=== PATIENT | male | born 1940 | race Caucasian/White ===

== ENCOUNTER 2018-07-15 11:59 | Emergency (ER) | payer MEDICARE, OTHER ==
[~2018-07-15] VITALS: Ht 175.3 cm; Wt 83.9 kg
--- OUTSIDE RECORDS SUMMARY | ~2018-07-15 | XMS | Clinical Summary ---
Demographics + + + | Address | [address] | | | [place] [address] | + + + | Home Phone | | + + + | Preferred Language | Unknown | + + + | Marital Status | | + + + | Sabianism Affiliation | Unknown | + + + | Race | Unknown | + + + | Ethnic Group | Unknown | + + + Author + + + | Author | [facility] | | | and [place] | + + + | Organization | [facility] | | | and [place] | + + + | Address | Unknown | + + + | Phone | Unavailable | + + + Support + + +---------+ + | Name | Relationship | Address | Phone | + + +---------+ + | Nancy Hewitt | ECON | Unknown | | + + +---------+ + Care Team Providers + +------+ + | Care Manager Commercial Real Estate Name | Role | Phone | + +------+ + | Graham Bernabe DO | PP | | + +------+ + Allergies Not on File Current Medications Not on file Active Problems Not on file Social History + +-------+ +--------+------+ | Tobacco Use | Types | Packs/Day | Years | Date | | | | | Used | | + +-------+ +--------+------+ | Never Assessed | | | | | + +-------+ +--------+------+ + + + | Sex Assigned at | Date Recorded | | | | + + + | Not on file | | + + + Plan of Treatment + + + + + | Health Maintenance | Due Date | Last Done | Comments | + + + + + | Vaccine: | | | | | Dtap/Tdap/Td (1 - | 0 | | | | Tdap) | | | | + + + + + | Vaccine: Zoster (1 | | | | | of 2) | 1 | | | + + + + + | Vaccine: | | | | | Pneumococcal 65+ | 6 | | | | Low/Medium Risk (1 | | | | | of 2 - PCV13) | | | | + + + + + | Adult Annual | | | | | Wellness Visit | 8 | | | + + + + + | Vaccine: Influenza | | | | | (Season Ended) | 9 | | | + + + + + Results Not on filefrom Last 3 Months Insurance + +--------+ +--------+ +---------+ | Payer | Benefi | Subscriber | Type | Phone | Address | | | t Plan | ID | | | | | | / | | | | | | | Group | | | | | + +--------+ +--------+ +---------+ | MEDICARE | MEDICA | [id number] | Medica | [phone] | | | | RE | | re | [phone] | | | | PART A | | | | | | | AND B | | | | | + +--------+ +--------+ +---------+ | | TRICAR | [id number] | Indemn | [phone] | | | | E FOR | | ity | [phone] | | | | LIFE | | | | | + +--------+ +--------+ +---------+ + +--------+ +--------+ + + | Guarantor Name | Accoun | Relation to | Date | Phone | Billing Address | | | t Type | Patient | of | | | | | | | | | | + +--------+ +--------+ + + | GHASSAN HEWITT | Person | Self [birth year] Home: | [address] | | | [place] | | 1940 | [phone] | [place] [address] | | | [place] | | | [phone] | | + +--------+ +--------+ + +"
--- OUTSIDE RECORDS SUMMARY | ~2018-07-15 | XMS | Encounter Summary ---
Demographics + + + | Address | [address] | | | [place] [address] | + + + | Home Phone | | + + + | Preferred Language | Unknown | + + + | Marital Status | | + + + | Baptist Affiliation | Unknown | + + + | Race | Unknown | + + + | Ethnic Group | Unknown | + + + Author + + + | Author | [facility] | + + + | Organization | [facility] | + + + | Address | Unknown | + + + | Phone | Unavailable | + + + Support + + +---------+ + | Name | Relationship | Address | Phone | + + +---------+ + | Nancy Hewitt | ECON | Unknown | | + + +---------+ + Care Team Providers + +------+ + | Care Signal Operator Technical Name | Role | Phone | + +------+ + | Srinivasa Graham | PCP | | + +------+ + Encounter Details +--------+ + + + + | Date | Type | Department | Care Team | Description | +--------+ + + + + | 06/01/ | Telephone | [facility] | Tong, | | | 2018 | | Rheumatology [address] | Leticia Pimentel [facility] [address] | | | | | [place] | [facility] | | | | | [place] [address] | [place] [address] | | | | | [phone] | [phone] | | | | | | | | +--------+ + + + + Social History + +-------+ +--------+------+ | Tobacco Use | Types | Packs/Day | Years | Date | | | | | Used | | + +-------+ +--------+------+ | Current Every Day | | | | | | Smoker | | | | | + +-------+ +--------+------+ + +---+---+---+ | Smokeless Tobacco: | | | | | Never Used | | | | + +---+---+---+ + + +---------+ + | Alcohol Use | Drinks/We | oz/Week | Comments | | | ek | | | + + +---------+ + | Yes | 8 Cans | 4.8 | | | | of beer | | | + + +---------+ + + + + | Sex Assigned at | Date Recorded | | | | + + + | Not on file | | + + + as of this encounter Plan of Treatment Not on fileas of this encounter Visit Diagnoses Not on filein this encounter"
--- OUTSIDE RECORDS SUMMARY | ~2018-07-15 | XMS | Encounter Summary ---
Demographics + + + | Address | [address] | | | [place] [address] | + + + | Home Phone | | + + + | Preferred Language | Unknown | + + + | Marital Status | | + + + | Christianity Affiliation | Unknown | + + + | Race | Unknown | + + + | Ethnic Group | Unknown | + + + Author + + + | Author | [facility] | + + + | Organization | [facility] | + + + | Address | Unknown | + + + | Phone | Unavailable | + + + Support + + +---------+ + | Name | Relationship | Address | Phone | + + +---------+ + | Nancy Hewitt | ECON | Unknown | | + + +---------+ + Care Team Providers + +------+ + | Care Statistical Assistant Name | Role | Phone | + +------+ + | Graham Bernabe | PCP | | + +------+ + Encounter Details +--------+ + + + + | Date | Type | Department | Care Team | Description | +--------+ + + + + | 06/02/ | Telephone | [facility] | Claritza Villegas, | | | 2018 | | Rheumatology [address] | [address] | | | | | [address] | | | | | | [place] [address] | | | | | | [phone] | | | +--------+ + + + [...]
--- OUTSIDE RECORDS SUMMARY | ~2018-07-15 | XMS | Encounter Summary ---
Demographics + + + | Address | [address] | | | [place] [address] | + + + | Home Phone | | + + + | Preferred Language | Unknown | + + + | Marital Status | | + + + | Yazdanism Affiliation | Unknown | + + + | Race | Unknown | + + + | Ethnic Group | Unknown | + + + Author + + + | Author | [facility] | + + + | Organization | [facility] | + + + | Address | Unknown | + + + | Phone | Unavailable | + + + Support + + +---------+ + | Name | Relationship | Address | Phone | + + +---------+ + | Nancy Hewitt | ECON | Unknown | | + + +---------+ + Care Team Providers + +------+ + | Care Finished Cloth Checker Name | Role | Phone | + +------+ + | Srinivasa Graham | PCP | | + +------+ + Encounter Details +--------+ + + + + | Date | Type | Department | Care Team | Description | +--------+ + + + + | 06/01/ | Telephone | [facility] | Tong, | | | 2018 | | Rheumatology [address] | Leticia Pimentel [facility] [address] | | | | | [place] | [facility] | | | | | [place] [address] | [place] [address] | | | | | [phone] | [phone] | | | | | | | [...]
--- OUTSIDE RECORDS SUMMARY | ~2018-07-15 | XMS | Clinical Summary ---
Demographics + + + | Address | [address] | | | [place] [address] | + + + | Home Phone | | + + + | Preferred Language | Unknown | + + + | Marital Status | | + + + | Methodist Affiliation | Unknown | + + + | Race | Unknown | + + + | Ethnic Group | Unknown | + + + Author + + + | Author | [facility] | | | and [place] | + + + | Organization | [facility] | | | [...] Team Providers + +------+ + | Care Overcoiler Name | Role | Phone | + [...] +--------+ +---------+ | MEDICARE | MEDICA | [id number] | Medica | [phone] | | | | RE | | re | [phone] | | | | PART A | | | | | | | AND B | | | | | + +--------+ +--------+ +---------+ | | TRICAR | [id number] | Indemn | [phone] | | | [...] | Self [birth year] | Home: | [address] | | | [place] | | 1940 | [phone] | [place] [address] | | | [place] | | | [phone] | | + +--------+ +--------+ + +"
--- OUTSIDE RECORDS SUMMARY | ~2018-07-15 | XMS | Clinical Summary ---
Demographics + + + | Address | [address] | | | [place] [address] | + + + | Home Phone | | + + + | Preferred Language | Unknown | + + + | Marital Status | | + + + | Nondenominational Affiliation | Unknown | + + + | Race | Unknown | + + + | Ethnic Group | Unknown | + + + Author + + + | Author | [facility] | + + + | Organization | [facility] | + + + | Address | Unknown | + + + | Phone | Unavailable | + + + Support + + +---------+ + | Name | Relationship | Address | Phone | + + +---------+ + | aNncy Hewitt | ECON | Unknown | | + + +---------+ + Care Team Providers + +------+ + | Care Boat Person Name | Role | Phone | + +------+ + | Graham Bernabe DO | PP | | + +------+ + Allergies No Known Allergies Current Medications + + + +---------+------+------+-------+ | Prescription | Sig. | Disp. | Refills | Star | End | Statu | | | | | | t | Date | s | | | | | | Date | | | + + + +---------+------+------+-------+ | aspirin 81 MG | Take 81 mg by mouth | | | | | Activ | | tablet | daily. | | | | | e | + + + +---------+------+------+-------+ | multivitamin | Take 1 tablet by | | | | | Activ | | (AQUADEKS) chewable | mouth daily with | | | | | e | | tablet | breakfast. | | | | | | + + + +---------+------+------+-------+ | Misc Natural | Take by mouth. | | | | | Activ | | Products | | | | | | e | | ([id number] | | | | | | | | M COMPLEX PO) | | | | | | | + + + +---------+------+------+-------+ | diclofenac | Apply 2 g topically | 1 Tube | 2 | 06/ | | Activ | | (VOLTAREN) 1 | 4 (four) times | | | 120 | | e | | %Indications: | daily. | | | 18 | | | | Rheumatoid arthritis | | | | | | | | of multiple sites | | | | | | | | with negative | | | | | | | | rheumatoid factor | | | | | | | | (HCC) | | | | | | | + + + +---------+------+------+-------+ | ORENCIA 125 MG/ML | INJECT 125 MG (1 ML) | 12 mL | 0 | 09/2 | | Activ | | SC prefilled | UNDER THE SKIN | | | 6/20 | | e | | syringeIndications: | EVERY 7 DAYS | | | 18 | | | | Rheumatoid arthritis | | | | | | | | of multiple sites | | | | | | | | with negative | | | | | | | | rheumatoid factor | | | | | | | | (HCC) | | | | | | | + + + +---------+------+------+-------+ | leflunomide | Take one tablet | 45 | 0 | 10/1 | | Activ | | (ARAVA) 20 MG | every other day | tablet | | 2/20 | | e | | tabletIndications: | | | | 18 | | | | Rheumatoid | | | | | | | | arthritis, involving | | | | | | | | unspecified site, | | | | | | | | unspecified | | | | | | | | rheumatoid factor | | | | | | | | presence (HCC) | | | | | | | + + + +---------+------+------+-------+ Active Problems + + + | Problem | Noted Date | + + + | 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 | | Inflammatory markers are increased, but this is a normal trend | | for him.Hand symptoms are most likely due to | | degenerative/mechanical changes, not inflammatoryRecommend:1. | | Continue arava 20 mg QOD. Recall, dose decreased due to decrease | | in WBC's. Keep a close watch on WBC's.2. Continue Orencia 125 | | mg/ml Q 4 weeks3. Continue voltaren gel PRN4. Return to clinic | | 3-4 months. | + + + + + | High risk medication use | 01/08/2017 | + + + + + | Last Assessment & Plan: Update labs today and continue to | | monitor closely while on DMARD and/or biologic medication. | | Counseled regarding medication compliance as well as potential | | toxicities with medications such as cytopenias, liver | | abnormalities and risks for infection, and the need for routine | | blood work monitoring. | + + + + + | Primary osteoarthritis involving multiple joints | 01/08/2017 | + + + + + | Last Assessment & Plan: Stable, continue conservative | | measuresContinue low impact exercise such as swimming and | | Voltaren gel prn | + + Resolved Problems +---------+ + + | Problem | Noted | Resolved | | | Date | Date | +---------+ + + | Rash | 01/09/20 | | | | 17 | 8 | +---------+ + + + + | Last Assessment & Plan: No rash present on today's | | examinationUncertain etiology of rash, as this gentleman was | | swimming and did have some sun exposure.If rash does reoccur, | | recommend she photograph, and contact our office or PCP for | | further evaluation. | + + Encounters +--------+ + + + + | Date | Type | Specialty | Care Team | Description | +--------+ + + + + | 06/02/ | Telephone | | Claritza Villegas, | | | 2018 | | | AUDIT SPEC | | +--------+ + + + + | 06/01/ | Telephone | | Tong, | | | 2018 | | | CHARLIE Corea | | +--------+ + + + + from Last 3 Months Family History + + +------+ + | Medical History | Relation | Name | Comments | + + +------+ + | Heart disease | Mother | | | + + +------+ + + +------+ + + | Relation | Name | Status | Comments | + +------+ + + | Father | | | | + +------+ + + | Mother | | | | + +------+ + + Social History + +-------+ +--------+------+ [...] on file | | + + + Last Filed Vital Signs + + + + | Vital Sign | Reading | Time Taken | + + + + | Blood Pressure | 143/81 | 01/23/2018 10:28 AM PDT | + + + + | Pulse | 101 | 01/23/2018 10:28 AM PDT | + + + + | Temperature | 37 C (98.6 F) | 01/23/2018 10:28 AM PDT | + + + + | Respiratory Rate | - | - | + + + + | Oxygen Saturation | - | - | + + + + | Inhaled Oxygen | - | - | | Concentration | | | + + + + | Weight | 92.5 kg (204 lb) | 01/23/2018 10:28 AM PDT | + + + + | Height | 175.3 cm (5' 9") | 01/23/2018 10:28 AM PDT | + + + + | Body Mass Index | 30.13 | 01/23/2018 10:28 AM PDT | + + + + Plan of Treatment + [...] Vaccine: Influenza | | | | | (#1) | 8 | | | + + + + + Results Not on filefrom Last 3 Months Insurance + +--------+ +------+-------+ + | Payer | Benefi | Subscriber | Type | Phone | Address | | | t Plan | ID | | | | | | / | | | | | | | Group | | | | | + +--------+ +------+-------+ + | MEDICARE | MEDICA | [id number] | | | [address] | | | RE | | | | [place] [id number] | | | IP-OP | | | | | + +--------+ +------+-------+ + | - WPS - | TRICAR | [id number] | | | [address] [address] | | | [place] | | | | [place] | | | LIFE | | | | [phone] | + +--------+ +------+-------+ + + +--------+ +--------+ + + | Guarantor Name | Accoun | Relation to | Date | Phone | Billing Address | | | t Type | Patient | of | | | | | | | | | | + +--------+ +--------+ + + | GHASSAN HEWITT | Person | Self [birth year] | Home: | [address] | | | [place] | | 1940 | [phone] | [place] [address] | | | [place] | | | [phone] | | + +--------+ +--------+ + +
--- OUTSIDE RECORDS SUMMARY | ~2018-07-15 | XMS | Clinical Summary ---
Demographics + + + | Address | [address] | | | [place] [address] | + + + | Home Phone | | + + + | Preferred Language | Unknown | + + + | Marital Status | | + + + | Episcopal Affiliation | Unknown | + + + | Race | Unknown | + + + | Ethnic Group | Unknown | + + + Author + + + | Author | [facility] | + + + | Organization | [facility] | + + + | Address | Unknown | + + + | Phone | Unavailable | + + + Support + + +---------+ + | Name | Relationship | Address | Phone | + + +---------+ + | Nancy Hewitt | ECON | Unknown | | + + +---------+ + Care Team Providers + +------+ + | Care Liquor Gallery Operator Name | Role | Phone | + [...] | | | | e | | ([id number] | | | | | | | [...] | | | 2018 | | | HANDLE MAKER | | +--------+ + + + + [...] +------+-------+ + | MEDICARE | MEDICA | [id number] | | | [address] | | | RE | | | | [place] [phone] | | | IP-OP | | | | | + +--------+ +------+-------+ + | - WPS - | TRICAR | [id number] | | | [address] [address] | | | [place] FOR | | | | [place] | | | LIFE | | | | [phone] | + +--------+ +------+-------+ + + +--------+ +--------+ + + | Guarantor Name | Accoun | Relation to | Date | Phone | Billing Address | | | t Type | Patient | of | | | | | | | | | | + +--------+ +--------+ + + | GHASSAN HEWITT | Person | Self [birth year] | Home: | [address] | | | [place] | | 1940 | [phone] | [place] [address] | | | [place] | | | [phone] | | + +--------+ +--------+ + +
--- OUTSIDE RECORDS SUMMARY | ~2018-07-15 | XMS | Encounter Summary ---
Demographics + + + | Address | [address] | | | [place] [address] | + + + | Home Phone | | + + + | Preferred Language | Unknown | + + + | Marital Status | | + + + | Episcopal Affiliation | Unknown | + + + | Race | Unknown | + + + | Ethnic Group | Unknown | + + + Author + + + | Author | [facility] | + + + | Organization | [facility] | + + + | Address | Unknown | + + + | Phone | Unavailable | + + + Support + + +---------+ + | Name | Relationship | Address | Phone | + + +---------+ + | Nancy Hewitt | ECON | Unknown | | + + +---------+ + Care Team Providers + +------+ + | Care Color Making Supervisor Name | Role | Phone | + +------+ + | Graham Bernabe | PCP | | + +------+ + Encounter Details +--------+ + + + + | Date | Type | Department | Care Team | Description | +--------+ + + + + | 06/02/ | Telephone | [facility] | Claritza Villegas, | | | 2018 | | Rheumatology [address] | [address] | | | | | [address] | | | | | | [place] [address] | | | | | | [phone] | | | +--------+ + + + [...]
[~2018-07-15 11:59] MED LIST: ARAVA20 MG PO; ASPIRIN EC81 MG PO; ATIVAN1 MG PO; AUGMENTIN 875-1 EACH PO; CIPRO500 MG PO; FIBER500 MG PO; GLUCOSAMINE-CH1 EA38; HYDROXYZINE HCL25 MG PO; IBUPROFEN800 MG PO; KETOCONAZOLE15 GM TOP; METOPROLOL SUCC25 MG PO; OMEPRAZOLE20 MG PO; ONDANSETRON ODT8 MG PO; ORENCIA125 MG/1 M SUB-Q; TOTALDAY MULTI1 EACH PO; TRIAMCINOLONE A15 GM TOP; VENCLEXTA100 MG PO; VIDAZA100 MG SUB-Q; VOLTAREN100 GM TOP; ZOVIRAX400 MG PO
--- OUTSIDE RECORDS SUMMARY | 2018-07-15 12:26 | XMS ---
PreManage Notification: DARY IQBAL Security Contamination Consultant Events No recent Security Events currently on file CRITERIA MET - [facility] CARE PROVIDERS TYLOR AGUILAR Primary Care Current PHONE: Unknown LEGACY PATIENT Primary Care [employer] SERVICES PHONE: Unknown Gayle has no Care Guidelines for this patient. Tao VISIT COUNT (12 MO.) [address] [place] [address] [facility] TOTAL 6 NOTE: Visits indicate total known visits. ED/UCC VISIT TRACKING (12 MO.) 07/15/2018 12:00 [facility] [place] TYPE: Emergency COMPLAINT: - RAPID HEART RATE 05/26/2018 11:31 [facility] TYPE: Emergency DIAGNOSES: - Acute myeloblastic leukemia, not having achieved remission - Pleurisy - chest pain 05/13/2018 14:19 [facility] [place] TYPE: Emergency DIAGNOSES: - chest pain - Other forms of angina pectoris - Acute myeloblastic leukemia, not having achieved remission - Anemia, unspecified 04/14/2018 12:20 [facility] [place] TYPE: Emergency DIAGNOSES: - SOB - Other forms of dyspnea - Anemia, unspecified 03/14/2018 13:09 [facility] [place] TYPE: Emergency DIAGNOSES: - Other forms of acute ischemic heart disease - Anemia, unspecified - Other pancytopenia - SHORTNESS OF BREATH 12/12/2017 19:26 [facility] [place] TYPE: Emergency COMPLAINT: - FB IN THROAT DIAGNOSES: - Personal history of nicotine dependence - Unspecified foreign body in esophagus causing other injury, initial encounter INPATIENT VISIT TRACKING (12 MO.) No inpatient visits to display in this time frame [email or web address]
--- NOTE | 2018-07-15 15:35 | EKG ---
[facility] [address] [facility] [place], [place] [address] S[address] Sin[address] Nonspecific ST abnormality Abnormal ECG No previous ECGs available Confirmed by HAZEL FREED DO ([id number]) on 07/15/2018 3:35:35 PM Electronically Signed By: HAZEL FREED DO 07/15/18 1535 PATIENT NAME: DARY IQBAL ELFEGO Electrocardiogram DATE OF : 42 PHYSICIAN: HAZEL FREED DO REPORT #: [id number] REPORT IS CONFIDENTIAL AND NOT TO BE RELEASED WITHOUT AUTHORIZATION
== END 2018-07-15 13:13 | disposition home or self-care (01) ==
LOC: ED 11:59
DX: R00.0 Tachycardia, unspecified (principal); Z87.891 Personal history of nicotine dependence; Z79.899 Other long term (current) drug therapy
CPT/HCPCS: 80053; 84443; 93005; 93010; 99285-25

== ENCOUNTER 2018-07-29 11:48 | Day surgery (SDC) | payer MEDICARE, OTHER ==
--- NOTE | 2018-07-15 11:22 | NUR ---
message left at cancer clinic for dr laboy pt hr 138 by auscultation was reading 144 on monitor.
--- NOTE | 2018-07-15 12:10 | NUR ---
dr laboy advises pt to go to e d to be evaluated for hr 140s. this told to pt and . states dr haines is not in office today. pt not symptomatic. they are not sure they want to go to e d. [facility].
[~2018-07-29] VITALS: Ht 175.3 cm; Wt 83.9 kg
--- NOTE | 2018-07-29 13:00 | NUR ---
07/29/18 Carmen Pena 1253 PT TO PACU AWAKE AND ALERT DENIES PAIN OR NAUSEA.
== END 2018-07-29 13:30 | disposition home or self-care (01) ==
LOC: OPS 11:48 → DS 11:48 → OPS 12:00
PROVIDERS: Specialist
PROC: 079T3ZX Drainage of Bone Marrow, Percutaneous Approach, Diagnostic (ICD-10-PCS; 2018-07-29)
PROC: 07DR3ZX Extraction of Iliac Bone Marrow, Percutaneous Approach, Diagnostic (ICD-10-PCS; principal; 2018-07-29 13:00)
DX: C92.00 Acute myeloblastic leukemia, not having achieved remission (principal); D70.9 Neutropenia, unspecified; F17.200 Nicotine dependence, unspecified, uncomplicated; Z79.899 Other long term (current) drug therapy
CPT/HCPCS: 85025; 99152; 99153; J2250; J3010; J7120

== ENCOUNTER 2018-12-18 10:18 | Day surgery (SDC) | payer MEDICARE, OTHER ==
[~2018-12-18] VITALS: Ht 175.3 cm; Wt 82.1 kg
[~2018-12-18 10:18] MED LIST changes: -METOPROLOL SUCC25 MG PO; +METOPROLOL SUCC50 MG; +TYLENOL325 MG PO
--- NOTE | 2018-12-18 12:32 | NUR ---
12/18/18 1232 Madelin Subramanian 1226- PT ARRIVES TO PACU ALERT AND ORIENTED. PT REPORTS NO PAIN OR NAUSEA. RESP EVEN AND UNLABORED. OXYGEN SAT HIGH 90'S ON 3L VIA NC. 1228- OXYGEN TITRATED OFF.
--- NOTE | 2018-12-24 13:31 | PATH ---
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 REASON FOR AMENDMENT: This amended report is issued to correct the referring provider delivery location. Originally reported as [facility]; amended to [facility]. The Diagnosis Summary remains unchanged. (12/22/2018) DIAGNOSIS SUMMARY: A. Peripheral blood - Mild normochromic, normocytic anemia. - Moderate neutropenia. B. Bone marrow, aspirate, clot section, and core biopsy: - Normocellular marrow (20-30%) with erythroid predominant trilineage hematopoiesis and dysmegakaryopoiesis. - No increase in blasts. - See Diagnostic Comment. DIAGNOSTIC COMMENT: We note the prior history of a high-grade myeloid neoplasm ([id number]) and a subsequent bone marrow biopsy demonstrating recurrent/residual myeloid neoplasm ([id number]). The current bone marrow is normocellular for age (20-30%) and demonstrates erythroid predominant trilineage hematopoiesis with occasional dyspoietic megakaryocytes seen. Flow cytometry demonstrates a 6% monocyte population, which shows decreased expression of CD13, which has been previously noted in this patient's atypical monocytes. Blasts are not increased, and a reticulin stain shows no significant fibrosis (MF-0 of 3). Karyotype and MDS FISH studies are pending and results will be reported in an addendum. [facility]:glc:C2NR PATIENT NAME: DARY HEWITT PATHOLOGY DATE OF : 42 REPORT #: [id number] PHYSICIAN: RAY PATHOLOGY PCP: TYLOR AGUILAR DO REPORT IS CONFIDENTIAL AND NOT TO BE RELEASED WITHOUT AUTHORIZATION [facility] [address], [place] [address] Signed PERIPHERAL BLOOD: HEMOGRAM (collected 12/18/2018): WBC 2.0 K/uL, RBC 4.43 M/uL, HGB 13.1 g/dL, HCT 39.2%, MCV 88.4 fL, MCH 30 pg, MCHC 33 g/dL, RDW 20.3%, PLT 194 K/uL. MANUAL DIFFERENTIAL COUNT (100 cells): Segmented neutrophils 54%, lymphocytes 38%, monocytes 5%, eosinophils 2%, basophils 1%. The red cells are mildly decreased in number and are normochromic and normocytic. There is moderate anisopoikilocytosis with occasional ovalocytes and rare hypochromic microcytes seen. Polychromasia is not increased. Leukocytes are decreased in number and show normal morphology. No significant dysplasia is appreciated in the neutrophils. Circulating blasts are not appreciated. Lymphocytes do not demonstrate atypia and include a subset of large granular lymphocytes. Platelets are normal in number and show normal morphology. BONE MARROW: BONE MARROW ASPIRATE: The bone marrow aspirate smears demonstrate a rare small spicule but are largely hemodilute and aspiculate. The bone marrow spiculate is composed predominantly of lymphocytes, histiocytes and erythroid precursors. Blasts do not appear increased. In the areas away from the spicules, there is trilineage hematopoiesis with marked erythroid predominance. Erythyroids show full spectrum maturation. Fewer scattered maturing myeloids are seen, which show normal lobation and granularity. Rare scattered megakaryocytes are present. Blasts do not appear increased. Due to significant hemodilution, a formal 200 cell was not performed. BONE MARROW CORE BIOPSY AND ASPIRATE CLOT SECTION CELL BLOCK: The bone marrow core biopsy measures 1.9 cm in length and consists of trabecular bone and intervening marrow, which shows an average cellularity of 20-30%. Erythroids are relatively increased in number and show full spectrum maturation. Myeloids are decreased in number and show full spectrum maturation. The M:E ratio is less than 1:5. Megakaryocytes are mildly increased in number and include occasional hyperchromatic and hypersegmented forms, with some loose clustering seen. A few smaller hypolobated megakaryocytes are present as well. Blasts are not increased. The bone marrow clot section shows predominantly blood with only a small fragment of marrow seen, showing similar findings as the core biopsy. SPECIAL STAINS: - Iron stain (aspirate smear): No bone marrow spicules are seen for assessment of iron stores. Ring sideroblasts are not seen. - Iron stain (block B1, with adequate external positive control): Adequate PATIENT NAME: DARY HEWITT PATHOLOGY DATE OF : 42 REPORT #: [id number] PHYSICIAN: RAY MARTINEZ PCP: TYLOR AGUILAR DO REPORT IS CONFIDENTIAL AND NOT TO BE RELEASED WITHOUT AUTHORIZATION [address] [address] Signed iron stores, no ring sideroblasts. - Reticulin (block B1, with adequate external positive control): No significant reticulin fibrosis, MF 0 of 3. IMMUNOHISTOCHEMICAL STAINS (block A1): - CD34: No increase in CD34 positive blasts. - CD117: Highlights scattered mast cells and dimly stains proerythroblasts. - E-Cadherin: Highlights numerous early erythroid precursors. [facility]:glc FLOW CYTOMETRY: Bone marrow, flow cytometry - No increase in blasts. - No monotypic B-cell or aberrant T-cell population identified. - See Comment. COMMENT: We note the prior immunophenotype of this patient's abnormal blasts (CD34 negative, CD117 dim partial) and atypical monocyte population. Flow cytometry of this current bone marrow specimen demonstrates no increase in CD34 or CD117 positive blasts. Monocytes account for 6% of all events, and demonstrate some decreased expression of CD13, which was seen in the previous studies, but otherwise show expected reactivity with panel antibodies. CD56 is essentially negative on monocytes. No abnormal B-cell or T-cell population is identified. Full interpretation of these results requires correlation with morphologic and clinical findings. FLOW CYTOMETRY ANALYSIS: FLOW DIFFERENTIAL (% Total CD45 vs. SSC gating): Myeloid 58%; Lymphoid 22%; Monocyte 6%; Dim CD45/Blast: 1%. Cell Count: 7.2 x 10*3/uL. POPULATION ANALYSIS: BLASTS: Analysis of the dim CD45 gate demonstrates 1% myeloblasts by CD34/CD117. LYMPHOID CELLS: The lymphocyte gate comprises 22% of total events and includes 89% T-cells with a CD4:CD8 ratio of 3.4:1 and normal javier T-cell antigen expression. 1% of lymphocytes are polyclonal B-cells with a kappa:lambda ratio of 2:1. The remainders are NK-cells. MYELOID CELLS: The myeloid population comprises 58% of the total events. No aberrant or immature immunophenotypic expression is detected. MONOCYTES: The monocyte population comprises 6% of the total events. Some decreased expression with CD13 is observed. PLASMA CELLS: 0.7% plasma cells are detected in the screening gate PATIENT NAME: DARY HEWITT PATHOLOGY DATE OF : 42 REPORT #: [id number] PHYSICIAN: RAY PATHOLOGY PCP: TYLOR AGUILAR DO REPORT IS CONFIDENTIAL AND NOT TO BE RELEASED WITHOUT AUTHORIZATION [facility] [address], [place] [address] Signed neg-dimCD45/CD38. Plasma cells are CD45 dim and positive for CD19. ANTIBODIES USED: KAPPA, LAMBDA, CD20, CD10, CD19, CD23, CD38, FMC7, CD16, CD56, CD8, CD5, CD2, CD4, CD7, CD3, CD14, CD33, CD13, HLADR, CD34, CD117, CD15, CD45, my4, mo2, CD11c, CD11b, CD64: TOTAL ANTIBODIES USED: 29. FINAL DIAGNOSIS PERFORMED BY: Prachi Isaac MD, Dec 22 2018 9:37AM TCS CYTOGENETICS: Pending, to be reported by addendum. FISH ANALYSIS: Pending, to be reported by addendum. GROSS DESCRIPTION: The specimen is received in two parts. A. The specimen, labeled and designated as "Marcelina, core," is received in formalin and consists of a single red-brown core of bone, 2.4 x 0.2 x 0.2 cm, which is entirely submitted in block (A1) for decalcification in Immunocal for 1.5 hours. B. The specimen, labeled and designated as "angel Hewitt," is received in formalin and consists of a 1.8 x 1.8 x 0.4 cm aggregate of red-brown clot material that is entirely submitted in block (B1). ak:YONY:francoise ADDITIONAL NOTES: Immunohistochemical and/or in situ hybridization studies were performed on this case with the appropriate positive controls that react as expected. This test was developed and its performance characteristics determined by [facility]. It has not been cleared or approved by the U.S. Food and Drug Administration. The FDA has determined that such clearance or approval is not necessary. This test is used for clinical purposes. It should not be regarded as investigational or for research. [facility] is certified under the Clinical Laboratory Improvement Amendments of 1988 (CLIA) as qualified to perform high complexity clinical laboratory testing. In this case, certain antibodies were performed by both immunohistochemistry and flow cytometry analysis because flow cytometry analysis did not fully explain all the light microscopic findings. PATIENT NAME: DARY HEWITT PATHOLOGY DATE OF : 42 REPORT #: [id number] PHYSICIAN: RAY MARTINEZ PCP: TYLOR AGUILAR DO REPORT IS CONFIDENTIAL AND NOT TO BE RELEASED WITHOUT AUTHORIZATION [address] [address] Signed Immunohistochemistry aided in the analysis. Both methods are deemed medically necessary in this case. This test was developed and its performance characteristics determined by [facility]. It has not been cleared or approved by the US Food and Drug Administration. The FDA does not require this test to go through premarket FDA review. This test is used for clinical purposes. It should not be regarded as investigational or for research. This laboratory is certified under the Clinical Laboratory Improvement Amendments (CLIA) as qualified to perform high complexity clinical laboratory testing. PERFORMING LABORATORY: Professional interpretation was performed by [facility], [address] [place] [address] (Willow Machine Operator: Conrad López D.O.; CLIA#: [id number]). The professional interpretation was performed by [facility], [address] [place] [address] (Willow Machine Operator: Conrad López D.O.; CLIA#: [id number]). IMAGES: A: [id number] A: [id number] REASON FOR ADDENDUM: To add results of additional testing. Bone marrow aspirate, FISH (fluorescence in situ hybridization) Result: Normal* (MDS panel) Interpretation: - These findings reveal no evidence of an aberrant cell clone with gains or losses of chromosomes 5q, 7q, 8, 17p and 20q at the sensitivity level of this analysis. - In order to rule out the presence of Loss of Heterozygosity regions (NAHUM/UPD), SNP microarray analysis may be considered (please contact [employer] for add-on testing). - Clinical and hematopathology correlation is requested. Interphase FISH (fluorescence in situ hybridization) was performed to assess this specimen for the presence of cytogenetic aberrations in the non-dividing cell population. Hybridization was performed using the EGR1/5p15.31 (chromosome 5), 7q22/7q31 (chromosome 7), D8Z2 (chromosome 8), TP53/D17Z1 (17p), and [id number] (20q) probe sets to assess this sample for the presence of monosomy 5 and 7, PATIENT NAME: DARY HEWITT PATHOLOGY DATE OF : 42 REPORT #: [id number] PHYSICIAN: RAY MARTINEZ PCP: TYLOR AGUILAR DO REPORT IS CONFIDENTIAL AND NOT TO BE RELEASED WITHOUT AUTHORIZATION [facility] [address] [place] [address] Signed deletion of 5q, 7q, 17p or 20q and trisomy 8, all common cytogenetic aberrations in patients with myeloid diseases. A total of 200 interphase cells were analyzed for each probe; the analyses fell within normal limits for this specimen type. -klb 12/23/18 @ 1346 *Please note, 1-3% of cells analyzed demonstrated a tetraploid FISH signal (4R4G) for all the probe sets analyzed. This may indicate the presence of a low-level tetraploid cell clone with unknown clinical significance. FISH Analysis Summary: Number of Cells Analyzed: 200 Cells Analyzed: Interphase Probes Utilized: EGR1,5p15.31, F4N124,F7B1410, C33Q610+D8Z2, TP53-P Source and Lot Number: [id number], [id number], [id number], [id number], [id number] Control Probe Utilized: database The technical and professional components of the FISH report were performed at [facility]. ([place], [place], case #[id number]). Detailed report is kept on file. Diagnostician: Prachi Isaac MD Pathologist Electronically Signed 12/23/2018 Copies: ~ PATIENT NAME: DARY HEWITT PATHOLOGY DATE OF : 42 REPORT #: [id number] PHYSICIAN: RAY MARTINEZ PCP: TYLOR AGUILAR DO REPORT IS CONFIDENTIAL AND NOT TO BE RELEASED WITHOUT AUTHORIZATION
== END 2018-12-18 13:00 | disposition home or self-care (01) ==
LOC: DS 10:18 → OPS 10:18 → DS 12:00 → OPS 12:00
PROVIDERS: Specialist
PROC: 079T3ZX Drainage of Bone Marrow, Percutaneous Approach, Diagnostic (ICD-10-PCS; 2018-12-18)
PROC: 07DR3ZX Extraction of Iliac Bone Marrow, Percutaneous Approach, Diagnostic (ICD-10-PCS; principal; 2018-12-18 12:00)
DX: C92.00 Acute myeloblastic leukemia, not having achieved remission (principal); D70.9 Neutropenia, unspecified; M06.9 Rheumatoid arthritis, unspecified; Z79.899 Other long term (current) drug therapy
CPT/HCPCS: 80053; 83615; 85025; 88184; 88185; 88305; 88311; 88313; 88341; 88342; 99152; 99153; J2250; J3010; J7120

== ENCOUNTER 2020-08-24 10:44 | Day surgery (SDC) | payer MEDICARE, OTHER ==
[~2020-08-24] VITALS: Ht 175.3 cm; Wt 90.9 kg
[~2020-08-24 10:44] MED LIST changes: +ACYCLOVIR400 MG PO; +MULTIVITAMINS1 EAC7 PO; +VITAMIN C500 M1 PO
--- NOTE | 2020-08-24 12:25 | NUR ---
08/24/20 1225 Lizett Ivy 1220 PT ARRIVED TO PACU TALKING TO RN AND DENIES PAIN AND NAUSEA. VSS.
--- NOTE | 2020-09-08 09:06 | PATH ---
[facility] [address] [place], [place] [address] Signed THIS IS AN ADDENDUM REPORT SPECIMEN(S): A BONE MARROW - CORE SPECIMEN(S): B BONE MARROW - ASPIRATION SPECIMEN(S): C COMPREHENSIVE FLOW CYTOMETRY ONLY IN BM EDTA CLINICAL HISTORY: Bone marrow biopsy. 80-year-old male with confirmed AML dx 03/11/18, now s/p 18 cycles of azacitidine/venetoclax. Evaluate for minimal residual disease. See attached. 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 Peripheral blood - Mild leukopenia, status post chemotherapy for AML - No circulating blasts are identified. B. Bone marrow biopsy and aspiration: - Hypercellular marrow, 40%, with 1% blasts. - Erythroid hyperplasia with mild megaloblastoid maturation. - No residual AML is identified by morphology, flow cytometry, or immunohistochemistry. 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 - See Diagnostic Comment. DIAGNOSTIC COMMENT: No residual AML is identified by morphology, flow cytometry, or immunohistochemistry. Erythroid hyperplasia is present with mild dyspoiesis. The myeloid series also has mild dyspoiesis. The patient's prior history of acute myelogenous leukemia with myelodysplasia related changes is noted. 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 The patient is status post 18 cycles of chemotherapy. This bone marrow is for re-staging. Prior FISH and chromosome testing have been normal. The most recent bone marrow was negative for AML (see [id number]; 09/02/2019). PERIPHERAL BLOOD: HEMOGRAM (08/24/2020): WBC 4.2 K/ul, RBC 4,68 M/ul, HGB 14,9 g/dl, HCT 44.2%, PATIENT NAME: DARY IQBAL PATHOLOGY DATE OF : 42 REPORT #: [id number] PHYSICIAN: RAY PATHOLOGY PCP: TYLOR AGUILAR DO REPORT IS CONFIDENTIAL AND NOT TO BE RELEASED WITHOUT AUTHORIZATION [facility] [address] [place], [place] [address] Signed MCV 94.4 fl, MCH 15.1 pg, MCHC 34 g/dl, RDW 15.1%, PLT 183 K/ul. Absolute neutrophil count 2,980/ul. MANUAL DIFFERENTIAL COUNT: Neutrophils 71%, lymphocytes 22%, monocytes 7%, eosinophils 0%, basophils 0%. The red blood cells are normocytic and normochromic with mild anisopoikilocytosis. The neutrophils are unremarkable. Lymphocytes are composed of small mature appearing forms. Platelets appear normal in number and morphology with no platelet clumping or RBC microangiopathic effect identified. No blasts are identified. BONE MARROW: ASPIRATE SMEARS/TOUCH IMPRINT: The aspirate smears are adequate for evaluation. Erythroid precursors are increased in numbers with mild dyspoiesis including mild megaloblastoid change. The myeloid precursors show mild dyspoiesis. There is no increase in blasts. Megakaryocytes are identified with a normal morphology. BONE MARROW DIFFERENTIAL COUNT (300 cells): Blasts 1%, promyelocytes 1%, myelocytes 4%, metamyelocytes/bands/segs 34%, erythroid precursors 48%, lymphocytes 5%, monocytes 4%, eosinophils 1%, plasma cells 2%. M:E ratio: Inverted at 0.85:1 BONE MARROW CORE BIOPSY/ASPIRATE CLOT/CELL BLOCK: The aspirate clot section and the core biopsy are adequate for evaluation. The core biopsy demonstrates unremarkable trabecular bone. The cellularity is normal for age, estimated at 40%. The erythroid precursors are increased with mild dyspoiesis. The myeloid precursors have mild dyspoiesis. Blasts are not increased. Megakaryocytes appear normal in number and in morphology. No granulomas, atypical lymphoid aggregates or foreign malignant cells are detected. SPECIAL STAINS (with adequate controls): - Iron (aspirate smear): Insufficient marrow spicules are present for evaluation of marrow iron stores. - Iron (aspirate clot): Increased marrow iron stores by Prussian Blue stain. No ring sideroblasts are identified. - Reticulin (block A1): 1+ reticulin fibrosis (MF-1). IMMUNOHISTOCHEMISTRY STAINS (performed on block A1 with adequate controls). - CD117 (blasts and promyelocytes): 1-2%, no atypical clusters. - E-cadherin (early erythroid cells): 40% FLOW CYTOMETRY: Bone marrow, flow cytometry: - No increased blasts or immature monocyte population is identified. PATIENT NAME: DARY IQBAL PATHOLOGY DATE OF : 42 REPORT #: [id number] PHYSICIAN: RAY MARTINEZ PCP: TYLOR AGUILAR DO REPORT IS CONFIDENTIAL AND NOT TO BE RELEASED WITHOUT AUTHORIZATION [address] [address] Signed - See Comment. COMMENT: No acute leukemia is identified by flow cytometry. Less than 1% blasts are noted. 2% monocytes are detected with no significant aberrant marking. No lymphoid clonality is identified. FLOW CYTOMETRY ANALYSIS: FLOW DIFFERENTIAL (% Total CD45 vs. SSC gating): Myeloid 85%; Lymphoid 8%; Monocyte 2%; Dim CD45/Blast: 1.0%. Cell Count: 4.3 x 10*3/uL. POPULATION ANALYSIS: BLASTS: Analysis of the dim CD45 gate demonstrates 0.6% myeloblasts by CD34/CD117. LYMPHOID CELLS: The lymphocyte gate comprises 8% of total events and includes 87% T-cells with a CD4:CD8 ratio of 2.3:1 and normal javier T-cell antigen expression. 1% of lymphocytes are polyclonal B-cells with a kappa:lambda ratio of 1.7:1. 6% of lymphocytes are NK-cells. MYELOID CELLS: The myeloid population comprises 85% of the total events. No aberrant or immature immunophenotypic expression is detected. MONOCYTES: The monocyte population comprises 2% of the total events. Monocytes are not increased. Some increased CD15 expression is observed. PLASMA CELLS: 0.4% plasma cells are detected in the screening gate neg-dimCD45/CD38. Plasma cells are CD45 dim and positive for CD19. ANTIBODIES USED: KAPPA, LAMBDA, CD20, CD10, CD19, CD23, CD38, FMC7, CD16, CD56, CD8, CD5, CD2, CD4, CD7, CD3, CD14, CD33, CD13, HLADR, CD34, CD117, CD15, CD45: TOTAL ANTIBODIES USED: 24. JLR FINAL DIAGNOSIS PERFORMED BY: David Brooke MD, Aug 25 2020 2:37PM CYTOGENETICS: Chromosome analysis is pending and the results will be reported in an addendum. FISH ANALYSIS: A FISH panel for AML is pending and the results will be reported in an addendum. GROSS DESCRIPTION: Two specimens are received in two containers, labeled "BB." A. The specimen, labeled "BB, core," is received in formalin and consists of one rosario-red, cylindrical bone core fragment measuring 0.2 cm in diameter PATIENT NAME: DARY IQBAL PATHOLOGY DATE OF : 42 REPORT #: [id number] PHYSICIAN: RAY PATHOLOGY PCP: TYLOR AGUILAR DO REPORT IS CONFIDENTIAL AND NOT TO BE RELEASED WITHOUT AUTHORIZATION [facility] [address] [place], [place] [address] Signed and 2.3 cm in length. The specimen is entirely submitted in cassette (A1) following decalcification in Immunocal. B. The specimen, labeled "BB, clot," is received in formalin and consists of thickened clot material measuring 1.7 x 1.5 x 0.5 cm in aggregate. The specimen is filtered and entirely submitted in cassette (B1). Bone marrow inventory also includes: Two peripheral smears, one EDTA tube bone marrow, two heparin tubes (one bone marrow, one peripheral blood). AT (under the direct supervision of a pathologist) The Gross Description was prepared using a voice recognition system. The report was reviewed for accuracy; however, sound-alike word errors, addition and/or deletions may occur. If there is any question about this report, please contact Client Services. ADDITIONAL NOTES: Immunohistochemical and/or in situ hybridization studies were performed on this case with the appropriate positive controls that react as expected. This test was developed and its performance characteristics determined by [facility]. It has not been cleared or approved by the U.S. Food and Drug Administration. The FDA has determined that such clearance or approval is not necessary. This test is used for clinical purposes. It should not be regarded as investigational or for research. [facility] is certified under the Clinical Laboratory Improvement Amendments of 1988 (CLIA) as qualified to perform high complexity clinical laboratory testing. This assay has not been validated for specimens that have been decalcified. In this case, certain antibodies were performed by both immunohistochemistry and flow cytometry analysis because flow cytometry analysis did not fully explain all the light microscopic findings. Immunohistochemistry aided in the analysis. Both methods are deemed medically necessary in this case. This test was developed and its performance characteristics determined by [facility]. It has not been cleared or approved by the US Food and Drug Administration. The FDA does not require this test to go through premarket FDA review. This test is used for clinical purposes. It should not be regarded as investigational or for research. This laboratory is certified under the Clinical Laboratory Improvement Amendments (CLIA) as qualified to perform high PATIENT NAME: DARY IQBAL PATHOLOGY DATE OF : 42 REPORT #: [id number] PHYSICIAN: RAY MARTINEZ PCP: TYLOR AGUILAR DO REPORT IS CONFIDENTIAL AND NOT TO BE RELEASED WITHOUT AUTHORIZATION [address] [address] Signed complexity clinical laboratory testing. PERFORMING LABORATORY: The technical component was performed by [facility], [address] [place] [address] (Picture Painter: Conrad López D.O.; CLIA#: [id number]). Professional interpretation was performed at [facility], [address] [place] [address] A portion of the technical component was performed by [facility], [address] [place] [id number] (Picture Painter: Eve Davis MD; CLIA# [id number]). A portion of the technical component was performed by [facility], [address] [place] [address] (Picture Painter: Conrad López D.O.; CLIA#: [id number]). The professional interpretation was performed at [facility], [address] [place] [address]. IMAGES: A: [id number] A: [id number] REASON FOR ADDENDUM: To add results of additional testing. 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 Clonal heterogeneity is evident. - These findings can be consistent with AML and may confer an adverse prognosis. - Clinical and hematopathologic correlation is recommended for the definitive diagnosis. Summary of cytogenetic results: Seven of the 25 cells examined had jumping translocations of 1q along with two normal chromosome 1s, effectively resulting in gain of 1q. Two of these 7 cells had two rearranged chromosomes, with one consisting of 1q and 16p and the other one consisting of 15q and 16q. One cell had a dicentric chromosome mainly PATIENT NAME: DARY IQBAL PATHOLOGY DATE OF : 42 REPORT #: [id number] PHYSICIAN: RAY PATHOLOGY PCP: TYLOR AGUILAR DO REPORT IS CONFIDENTIAL AND NOT TO BE RELEASED WITHOUT AUTHORIZATION [facility] [address] [place], [place] [address] Signed consisting of the majority of chromosome 11 and 1q, resulting in loss of distal region of 11p and gain of 1q. The other four cells had rearranged chromosomes consisting of 1q and 15q (two cells), of 1q and 12p (one cell), or of Yq and 1q (one cell), resulting in gain of 1q and loss of 15p, 12q and Yp respectively. Eighteen normal cells were observed. Cytogenetic Analysis Summary: Number of Cultures used for Analysis: 2 Banding Level: 350-375 Extra Cells Analyzed /Scored: 38 Number of Cells Imaged and Analyzed: 25 Number of Karyograms: 12 Banding Method: GTW/G The technical and professional components of the cytogenetic analysis were performed at [facility] ([place], [place], case #[id number]). Detailed report is kept on file. NOTE: The chromosome analysis demonstrates the persistence of a myelodysplastic lineage. The results are discussed with the clinician. SPECIMEN SOURCE: A. FISH Analysis, AML FISH, BM EDTA CLINICAL HISTORY: Bone marrow biopsy. 80-year-old male with confirmed AML dx 11/28/18, now s/p 18 cycles of azacitidine/venetoclax. Evaluate for minimal residual disease. See attached. 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 CBFB rearrangement: Not detected. VIFS3C8/RUNX1 rearrangement: Not detected. KMT2A (MLL) rearrangement: Not detected. 7q deletion/monosomy 7: Not detected. Trisomy 8: Not detected. 20q deletion: Not detected. Fluorescence in situ hybridization (FISH) analysis was performed using the AML panel specific set of probes. No abnormality is detected. There is no evidence for PML/YOVANI gene fusion, t(15;17) or KZEH5C7/RUNX1 gene fusion, t(8;21), KMT2A (MLL) or CBFB gene rearrangement and no evidence for deletion 7q, or 20q, or monosomy 7 or trisomy 8. PATIENT NAME: DARY IQBAL PATHOLOGY DATE OF : 42 REPORT #: [id number] PHYSICIAN: RAY MARTINEZ PCP: TYLOR AGUILAR DO REPORT IS CONFIDENTIAL AND NOT TO BE RELEASED WITHOUT AUTHORIZATION [address] [address] Signed This analysis is limited to abnormalities detectable by the specific probes included in the study. FISH should be interpreted within the context of a full cytogenetic analysis and hematologic evaluation. ISCN: Probe Set Detail: PML/YOVANI: nuc grey 15q22(PMLx2),17q21.1(RARAx2)[200] CBFB: nuc grey 16q22(5'CBFB,3'CBFB)x2(5'CBFB con 3'CBFBx2)[200] UDSP4X2/RUNX1: nuc grey 8q21(QSIW6H1s2),21q22(HCVV3j7)[200] KMT2A (MLL): nuc grey 11q23(5'KMT2A,3'KMT2A)x2(5'KMT2A con 3'PMG0Xn5)[200] K6B730/CEP7: nuc grey 7q31(O6V314r7),7q11.2q11.21(CEP7x2)[200] CEP8: nuc grey 8q11.1q11.21(CEP8x2)[200] S13O407: nuc grey 20q12(A17H275u5)[200] References: [place] [employer] and Cytogen[employer] in Oncology and Hematology [email or web address] FISH Analysis Summary: Nuclei Scored: 200 Scoring Method: Manual; CPT Code 28463 Number of Probe units: 6 Multiplex Cells analyzed: Interphase Probe sets: Chrom 7: CEN7, Chrom 7: P1U1479, Chrom 8: MARILUZ 8 , Chrom 8: OZHE2J0, Chrom 11: KMT2A (MLL) 3', Chrom 11: KMT2A (MLL) 5', Chrom 15: PML, Chrom 16: CBFB 3', Chrom 16: CBFB 5', Chrom 17: YOVANI, Chrom 20: [id number], Chrom 21: RUNX1 ADDITIONAL NOTES: This test was developed and its performance characteristics determined by [facility] It has not been cleared or approved by the US Food and Drug Administration. The [employer] DNA probe vendor for this study was [employer]. PERFORMING LABORATORY: The technical component of the FISH testing was performed by [facility], [address] [place] [address] (Picture Painter: Conrad López D.O.; CLIA#: [id number]). Professional interpretation was performed by [facility], [address] [place] [address] (Picture Painter: Conrad López D.O.; [facility]#: [id number]). FINAL DIAGNOSIS PERFORMED BY: Shailesh Vega MD. MPH, Pathologist Aug 29 2020 PATIENT NAME: DARY IQBAL PATHOLOGY DATE OF : 42 REPORT #: [id number] PHYSICIAN: RAY MARTINEZ PCP: TYLOR AGUILAR DO REPORT IS CONFIDENTIAL AND NOT TO BE RELEASED WITHOUT AUTHORIZATION [facility] [address] [place] [address] Signed 4:36PM REASON FOR ADDENDUM: To add results of additional testing. Diagnostician: Shailesh Vega MD. MPH Pathologist Diagnostician: David Brooke MD Pathologist Electronically Signed 09/08/2020 Copies: ~ PATIENT NAME: DARY IQBAL PATHOLOGY DATE OF : 42 REPORT #: [id number] PHYSICIAN: RAY PATHOLOGY PCP: TYLOR AGUILAR DO REPORT IS CONFIDENTIAL AND NOT TO BE RELEASED WITHOUT AUTHORIZATION
== END 2020-08-24 12:45 | disposition home or self-care (01) ==
LOC: DS 10:44 → OPS 10:44 → DS 12:00 → OPS 12:45
PROVIDERS: ATTEND Specialist
PROC: 079T3ZX Drainage of Bone Marrow, Percutaneous Approach, Diagnostic (ICD-10-PCS; 2020-08-24)
PROC: 07DR3ZX Extraction of Iliac Bone Marrow, Percutaneous Approach, Diagnostic (ICD-10-PCS; principal; 2020-08-24 12:00)
DX: C92.01 Acute myeloblastic leukemia, in remission (principal); Z79.899 Other long term (current) drug therapy; Z88.8 Allergy status to other drugs, medicaments and biological substances
CPT/HCPCS: 85025; 88184; 88185; 88237; 88264; 88280; 88305; 88311; 88313; 88342; 88360; 88377; G0500; J2250; J3010; J7121

== ENCOUNTER 2021-09-19 10:15 | Day surgery (SDC) | payer MEDICARE, OTHER ==
[~2021-09-19] VITALS: Ht 177.8 cm; Wt 90.9 kg
[2021-09-19] MEDS ORDERED: VITAMIN D350 MC3 PO (10:43)
--- NOTE | 2021-09-19 12:18 | NUR ---
09/19/21 1218 Tammy Sheriff 1207-PATIENT ARRIVED TO PACU ON 5L NC RR EVEN LAYING PRONE. BANDAID TO LEFT SIDE OF BACK CDI. IVF INFUSING. PATIENT REACTIVE TO VERBAL STIMULI OPENING EYES. PATIENT REPOSITIONED TO BACK WITH RN AND MENTAL HEALTH SOCIAL WORKER ASSISTANCE. OK TO LEAVE TELEMETRY OFF PER DELANEY CORRAL. 1210-PATIENT AWAKE DENIES PAIN OR NAUSEA PLACED ON RA RR EVEN.
--- NOTE | 2021-09-22 14:44 | EKG ---
[facility] [address] [facility] [place] [address] Signed Normal sinus rhythm Normal ECG When compared with ECG of 15-JUL-2018 12:09, Vent. rate has decreased BY 37 BPM Confirmed by CORRY BARR MD ([id number]) on 09/22/2021 2:44:41 PM Electronically Signed By: CORRY BARR MD 09/22/21 1444 PATIENT NAME: CORA IQBALCelena TELLES Electrocardiogram DATE OF : 42 PHYSICIAN: CORRY BARR MD REPORT #: [id number] REPORT IS CONFIDENTIAL AND NOT TO BE RELEASED WITHOUT AUTHORIZATION
--- NOTE | 2021-09-26 08:01 | PATH ---
[facility] [address], [place] [address] Signed SPECIMEN(S): A BONE MARROW - CORE SPECIMEN(S): B BONE MARROW - ASPIRATION SPECIMEN(S): C FLOW CYTOMETRY, BM EDTA ASP CLINICAL HISTORY: Bone marrow biopsy. 81-year-old WM with AML DX 03/11/2018 on continuous venetoclax/azacitidine since eval for remission/relapse. See attached. DIAGNOSIS SUMMARY: A. Peripheral blood - Leukopenia, absolute neutrophil count 600/uL. - No circulating blasts are identified. B. Bone marrow biopsy and aspiration: - Normocellular marrow, 30%, with 2 to 3% myeloblasts. - No definite acute leukemia identified by morphology, flow cytometry, or immunohistochemistry stains. - Trilineage hematopoiesis with erythroid and megakaryocytic hyperplasia. 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 - Increased marrow iron stores by Prussian blue staining. - See Diagnostic Comment. DIAGNOSTIC COMMENT: No definitive acute myelogenous leukemia is identified by morphology, flow cytometry, or immunohistochemistry. The most recent bone marrow exam (see case [id number]; 08/24/2020) demonstrated del of 1q suspicious for minimal residual disease (MRD). The current AML/MDS FISH panel and chromosome analysis are pending at the time of this dictation. Clinical correlation with these studies is needed to exclude MRD. Myeloid precursors are markedly reduced in numbers. This may be related to drug effect (chemotherapy). No morphologic dyspoiesis was noted. JLP:C2NR HISTORICAL SUMMARY: 81-year-old male with a reported history of AML in 2018. He is being treated with azacitidine and venclextra. This bone marrow is for re-staging. PERIPHERAL BLOOD: HEMOGRAM (09/19/2021): WBC 1.4 K/ul, RBC 4.07 M/ul, HGB 13.4 g/dl, HCT 40.2%, MCV 98.9 fl, MCH 33.0 pg, MCHC 33.4 g/dl, RDW 17.0%, PLT 215 K/ul. Absolute neutrophil count 600/ul. PATIENT NAME: DARY IQBAL PATHOLOGY DATE OF : 42 REPORT #: [id number] PHYSICIAN: RAY MARTINEZ PCP: TYLOR AGUILAR DO REPORT IS CONFIDENTIAL AND NOT TO BE RELEASED WITHOUT AUTHORIZATION [facility] [address] [place], [place] [address] Signed AUTOMATED DIFFERENTIAL COUNT: Neutrophils 41.9%, lymphocytes 53.3%, monocytes 2.5%, eosinophils 1.5%, basophils 0.8%. The red blood cells are normocytic and normochromic with minimal anisopoikilocytosis. The neutrophils are unremarkable. Lymphocytes are composed of small mature appearing forms. Platelets appear normal in number and morphology with no platelet clumping or RBC microangiopathic effect identified. No blasts are identified. BONE MARROW: ASPIRATE SMEARS/TOUCH IMPRINT: The aspirate smears are hemodilute and are suboptimal for evaluation. No touch prep smears are present for evaluation. Erythroid precursors are markedly increased in numbers but show adequate maturation with essentially normal morphology. The myeloid precursors are markedly reduced in numbers but show full maturation with unremarkable morphology. Approximately 2-3% blasts are noted. Megakaryocytes are not identified in the smears. BONE MARROW DIFFERENTIAL COUNT (300 cells): Blasts 2%, promyelocytes less than 1%, myelocytes 1%, metamyelocytes/bands/segs 9%, erythroid precursors 64%, lymphocytes 14%, monocytes 5%, eosinophils 5%, plasma cells less than 1%. M:E ratio: Inverted at 0.3:1 BONE MARROW CORE BIOPSY/ASPIRATE CLOT/CELL BLOCK: The aspirate clot section and the core biopsy are borderline adequate for evaluation. The core biopsy demonstrates unremarkable trabecular bone. The cellularity is normal for age, estimated at 30%. The erythroid precursors are markedly increased with essentially unremarkable maturation. The myeloid precursors are decreased in numbers with no significant dyspoiesis. Blasts are mildly increased. Megakaryocytes appear increased in number with mostly normal morphology and with focal dyspoiesis. No granulomas, atypical lymphoid aggregates or foreign malignant cells are detected. SPECIAL STAINS (with adequate controls): - iron (aspirate smear): Increased marrow iron stores by Prussian Blue stain. No ring sideroblasts are identified. - iron (cell block): Increased marrow iron stores by Prussian Blue stain. No ring sideroblasts are identified. - PAS (block B1): Increased megakaryocytes with focal dyspoiesis. IMMUNOHISTOCHEMISTRY STAINS (performed on block B1 with adequate controls). - CD34: 1% - CD117: 2-3% - CD71: 50-60% PATIENT NAME: DARY IQBAL PATHOLOGY DATE OF : 42 REPORT #: [id number] PHYSICIAN: RAY MARTINEZ PCP: TYLOR AGUILAR DO REPORT IS CONFIDENTIAL AND NOT TO BE RELEASED WITHOUT AUTHORIZATION [address] [address] Signed FLOW CYTOMETRY: Bone marrow, flow cytometry: - 2.3% myeloblasts with no aberrant marking. - See Comment. COMMENT: Blasts are mildly increased at 2.3% with no aberrant marking. The myeloid gate exhibits mild atypical maturation. No lymphoid or plasma cell clonality is detected. Correlation with bone marrow findings is required. FLOW CYTOMETRY ANALYSIS: FLOW DIFFERENTIAL (% Total CD45 vs. SSC gating): Myeloid 58%; Lymphoid 26%; Monocyte 1%; Dim CD45/Blast: 2.3%. Cell Count: 4.0 x 10*3/uL. POPULATION ANALYSIS: BLASTS: Analysis of the dim CD45 gate demonstrates 2.3% myeloblasts by CD34/CD117. LYMPHOID CELLS: The lymphocyte gate comprises 26% of total events and includes 83% T-cells with a CD4:CD8 ratio of 2.2:1 and normal javier T-cell antigen expression. B-cells are essentially absent. The remainders are NK-cells. MYELOID CELLS: The myeloid population comprises 58% of the total events. Decreased SSC and some decreased CD10 expression are observed. MONOCYTES: The monocyte population comprises 1% of the total events. Monocytes are not increased. No aberrant immunophenotypic expression is detected. PLASMA CELLS: An increased number of plasma cells are observed in the screening gate of CD45 neg-dim/CD38. For this reason, select additional antibodies are run to further characterize the plasma cells. 2.5% polyclonal plasma cells are detected (n=316) expressing CD45 DIM-NEG, CD38 BR, CD138 (variable), CD19 (variable) and CD56 DIM (minor subset) while negative for CD20 with a ckappa:clambda ratio of 1.4:1. MAST CELLS: 0.3% of total events are mast cells (n=52). Initial Antibodies Used: KAPPA, LAMBDA, CD20, CD10, CD19, CD23, CD38, CD16, CD56, CD8, CD5, CD2, CD4, CD7, CD3, CD14, CD33, CD13, HLADR, CD34, CD117, CD15, CD45. Additional Antibodies (necessary for further plasma cell analysis): ckappa, clambda, CD138. Total Antibodies Used: 26. JNB FINAL DIAGNOSIS PERFORMED BY: David Brooke MD, Sep 20 2021 4:55PM PATIENT NAME: DARY IQBAL PATHOLOGY DATE OF : 42 REPORT #: [id number] PHYSICIAN: RAY MARTINEZ PCP: TYLOR AGUILAR DO REPORT IS CONFIDENTIAL AND NOT TO BE RELEASED WITHOUT AUTHORIZATION [facility] [address], [place] [address] Signed CYTOGENETICS: Chromosome analysis is pending, and the results will be reported in an addendum. FISH ANALYSIS: A FISH panel for AML/MDS is pending, and the results will be reported in an addendum. GROSS DESCRIPTION: Two specimens are received in two containers, labeled "BB." A. The specimen, labeled "BB, core," is received in formalin and consists of two cylindrical bone core fragments measuring 0.2-0.3 cm in diameter and 0.6-1.1 cm in length. The specimen is entirely submitted in cassette (A1) following decalcification in [facility]. Cold ischemic time: Cannot be determined because of lack of information. Approximate time in formalin: 6 hours. B. The specimen, labeled "BB, clot," is received in formalin and consists of thickened clot material measuring 2.5 x 1.9 x 0.4 cm in aggregate. The specimen is filtered and entirely submitted in cassette (B1). Bone marrow inventory also includes: Two peripheral smears, one EDTA tube bone marrow, two heparin tubes (one bone marrow, one peripheral blood). AT (under the direct supervision of a pathologist) The Gross Description was prepared using a voice recognition system. The report was reviewed for accuracy; however, sound-alike word errors, addition and/or deletions may occur. If there is any question about this report, please contact Client Services. ADDITIONAL NOTES: Immunohistochemical and/or in situ hybridization studies were performed on this case with the appropriate positive controls that react as expected. This test was developed and its performance characteristics determined by [facility]. It has not been cleared or approved by the U.S. Food and Drug Administration. The FDA has determined that such clearance or approval is not necessary. This test is used for clinical purposes. It should not be regarded as investigational or for research. [facility] is certified under the Clinical Laboratory Improvement Amendments of 1988 (CLIA) as qualified to perform high complexity clinical laboratory testing. This assay has not been validated for specimens that have PATIENT NAME: DARY IQBAL PATHOLOGY DATE OF : 42 REPORT #: [id number] PHYSICIAN: RAY PATHOLOGY PCP: TYLOR AGUILAR DO REPORT IS CONFIDENTIAL AND NOT TO BE RELEASED WITHOUT AUTHORIZATION [facility] [address] [place], [place] [address] Signed been decalcified. In this case, certain antibodies were performed by both immunohistochemistry and flow cytometry analysis because flow cytometry analysis did not fully explain all the light microscopic findings. Immunohistochemistry aided in the analysis. Both methods are deemed medically necessary in this case. This test was developed and its performance characteristics determined by [facility]. It has not been cleared or approved by the US Food and Drug Administration. The FDA does not require this test to go through premarket FDA review. This test is used for clinical purposes. It should not be regarded as investigational or for research. This laboratory is certified under the Clinical Laboratory Improvement Amendments (CLIA) as qualified to perform high complexity clinical laboratory testing. PERFORMING LABORATORY: The technical component was performed by [facility], [address] [place] [address] (CLIA#: [id number]). Professional interpretation was performed by [facility], [address] [place] [phone] (CLIA#: [id number]). A portion of the technical component was performed by [facility], [address] [place] [address] (CLIA# [id number]). A portion of the technical component was performed by [facility], [address] [place] [phone] (CLIA#: [id number]). Professional interpretation was performed by [facility], [address] [place] [phone] (CLIA#: [id number]). IMAGES: A: [id number]: [id number] Diagnostician: David Brooke MD Pathologist Electronically Signed 09/26/2021 Copies: PATIENT NAME: DARY IQBAL RAY PATHOLOGY DATE OF : 42 REPORT #: [id number] PHYSICIAN: RAY PATHOLOGY PCP: TYLOR AGUILAR DO REPORT IS CONFIDENTIAL AND NOT TO BE RELEASED WITHOUT AUTHORIZATION [address] [address] Signed ~ PATIENT NAME: DARY IQBAL PATHOLOGY DATE OF : 42 REPORT #: [id number] PHYSICIAN: RAY PATHOLOGY PCP: TYLOR AGUILAR DO REPORT IS CONFIDENTIAL AND NOT TO BE RELEASED WITHOUT AUTHORIZATION
== END 2021-09-19 12:43 | disposition home or self-care (01) ==
LOC: DS 10:15 → OPS 10:15 → DS 12:00 → OPS 12:00
PROVIDERS: ATTEND Specialist
PROC: 079T3ZX Drainage of Bone Marrow, Percutaneous Approach, Diagnostic (ICD-10-PCS; 2021-09-19)
PROC: 07DR3ZX Extraction of Iliac Bone Marrow, Percutaneous Approach, Diagnostic (ICD-10-PCS; principal; 2021-09-19 12:00)
DX: C92.01 Acute myeloblastic leukemia, in remission (principal); M06.89 Other specified rheumatoid arthritis, multiple sites; F17.210 Nicotine dependence, cigarettes, uncomplicated; D75.89 Other specified diseases of blood and blood-forming organs; D61.811 Other drug-induced pancytopenia
CPT/HCPCS: 01112; 36415; 85025; 93005; 93010; J2001; J2704; J3010